=== PATIENT | male | born 1950 | race Two or more races ===

== ENCOUNTER 2022-08-30 14:45 | Emergency (ER) | payer OTHER, MEDICAID ==
[~2022-08-30] VITALS: Ht 170.2 cm; Wt 87.3 kg
[2022-08-30 15:46] LABS: Basophils # (auto) 0.1 10 ^3/uL (0-0.2); Basophils % (auto) 0.8 % (0.0-2.0); Eosinophils # (auto) 0.1 10 ^3/uL (0-0.8); Eosinophils % (auto) 1.5 % (0.0-7.0); Hematocrit 43.5 % (41.0-53.0); Hemoglobin 14.5 g/dL (13.5-17.5); Lymphocytes # (auto) 2.2 10 ^3/uL (0.4-5.4); Lymphocytes % (auto) 34.2 % (10.0-50.0); Mean Corpuscular Hemoglobin 29.5 pg (28.0-32.0); Mean Corpuscular Hgb Conc. 33.2 g/dL (32.0-36.0); Mean Corpuscular Volume 88.6 fL (80.0-100.0); Monocytes # (auto) 0.5 10 ^3/uL (0-1.3); Monocytes % (auto) 8.4 % (0.0-12.0); Neutrophils # (auto) 3.5 10 ^3/uL (1.6-8.6); Neutrophils % (auto) 55.1 % (37.0-80.0); Nucleated Red Blood Cells % 0.4 %; Red Blood Cells 4.91 10^6/uL (4.5-5.90); Red Cell Distribution Width 15.6 % (11.8-14.3); White Blood Cell 6.3 10^3/uL (4.4-10.8)
[2022-08-30 16:04] LABS: INR 1.03 (0.9-1.15); Partial Thromboplastin Time 29.1 SEC (24.5-34.5)
[2022-08-30 16:06] LABS: Calcium 8.5 mg/dL (8.5-10.1)
[2022-08-30 16:11] LABS: BUN/Creatinine Ratio 15.3 (10.0-20.0); Bilirubin, Total 0.6 mg/dL (0.2-1.0)
[2022-08-30] MEDS ORDERED: PHENSUP38 PR ×2 (19:51)
[2022-08-30 20:40] VITALS: BP 144/62
== END 2022-08-30 20:46 | disposition home or self-care (01) ==
LOC: ER 14:45
DX: K64.8 Other hemorrhoids (principal); R06.02 Shortness of breath
CPT/HCPCS: 36415; 80053; 83880; 84484; 85025; 85610; 85730; 86850; 86900; 86901; 93005

== ENCOUNTER 2022-09-01 19:30 | Emergency (ER) | payer OTHER, MEDICAID ==
[~2022-09-01] VITALS: Ht 170.2 cm; Wt 86.5 kg
[~2022-09-01 19:30] MED LIST: PHENSUP38 PR
[2022-09-01] MEDS ORDERED: HYDR25SU21 PR ×2 (20:58)
[2022-09-01 21:05] VITALS: BP 132/67
== END 2022-09-01 21:06 | disposition home or self-care (01) ==
LOC: ER 19:30
DX: K64.8 Other hemorrhoids (principal)

== ENCOUNTER 2023-10-18 06:23 | Emergency (ER) | payer OTHER, MEDICAID ==
[~2023-10-18] VITALS: Ht 350.5 cm; Wt 78.0 kg
[2023-10-18] MEDS: SODIUM CHLORIDE 0.9% 1,000 ML IV ONE (07:45)
[2023-10-18 08:28] LABS: Basophils # (auto) 0.1 10 ^3/uL (0-0.2); Basophils % (auto) 0.8 % (0.0-2.0); Eosinophils # (auto) 0.1 10 ^3/uL (0-0.8); Eosinophils % (auto) 1.8 % (0.0-7.0); Hematocrit 43.1 % (41.0-53.0); Hemoglobin 14.4 g/dL (13.5-17.5); Lymphocytes # (auto) 2.2 10 ^3/uL (0.4-5.4); Lymphocytes % (auto) 30.7 % (10.0-50.0); Mean Corpuscular Hemoglobin 29.6 pg (28.0-32.0); Mean Corpuscular Hgb Conc. 33.5 g/dL (32.0-36.0); Mean Corpuscular Volume 88.3 fL (80.0-100.0); Monocytes # (auto) 0.7 10 ^3/uL (0-1.3); Monocytes % (auto) 9.9 % (0.0-12.0); Neutrophils # (auto) 4.1 10 ^3/uL (1.6-8.6); Neutrophils % (auto) 56.8 % (37.0-80.0); Nucleated Red Blood Cells % 0.2 %; Platelet Count (auto) 260 10^3/uL (140-450); Red Blood Cells 4.88 10^6/uL (4.5-5.90); Red Cell Distribution Width 15.3 % (11.8-14.3); White Blood Cell 7.2 10^3/uL (4.4-10.8)
[2023-10-18 08:51] VITALS: TEMP 98
[2023-10-18 08:55] LABS: Alanine Aminotransferase 18 U/L (7-40); Albumin 4.4 g/dL (3.2-4.8); Alkaline Phosphatase 99 U/L (46-116); Anion Gap 0 (5-15); Aspartate Aminotransferase 16 U/L (13-40); BUN/Creatinine Ratio 14.1 (10.0-20.0); Blood Urea Nitrogen 13 mg/dL (9-23); Calcium 9.7 mg/dL (8.7-10.4); Carbon Dioxide 33 mmol/L (20-30); Chloride 106 mmol/L (98-107); Glucose 103 mg/dL (74-106); Magnesium 2.2 mg/dL (1.6-2.6); Potassium 3.9 mmol/L (3.5-5.1); Sodium 139 mmol/L (136-145)
[2023-10-18 08:56] LABS: Bilirubin, Total 1.4 mg/dL (0.2-1.0)
[2023-10-18 09:18] VITALS: RESP 18; O2SAT 95
[2023-10-18] MEDS: IOHEXOL 350 MG/ML 100ML IJ ONE (09:23)
[2023-10-18] MEDS: IOHEXOL 300 MG/ML 100ML BOTTLE IJ ONE (09:24)
[2023-10-18 10:05] LABS: Urine Bacteria None Seen /hpf (None Seen)
[2023-10-18 10:15] LABS: Urine Blood Negative /uL (Negative); Urine Clarity Clear (Clear); Urine Color Light-Yellow (Yellow); Urine Mucus FEW (None Seen); Urine Protein, UAD Negative (Negative); Urine Specific Gravity 1.017 (1.001-1.035); Urine Urobilinogen Normal (Negative); Urine WBC <1 /hpf (0 - 3); Urine pH 5.5 (5.0-9.0)
[2023-10-18 11:03] VITALS: BP 179/73; PULSE 55; RESP 18; O2SAT 97
[2023-10-18] MEDS ORDERED: HYDR25SU21 PR (12:34)
[2023-10-18] MEDS ORDERED: TAMS-35 PO (12:34)
[2023-10-18] MEDS ORDERED: DICL50TA2 PO (12:34)
== END 2023-10-18 13:06 | disposition home or self-care (01) ==
LOC: ER 06:25
DX: K64.8 Other hemorrhoids (principal); N40.0 Benign prostatic hyperplasia without lower urinary tract symptoms; I10 Essential (primary) hypertension; E11.9 Type 2 diabetes mellitus without complications; E78.5 Hyperlipidemia, unspecified
CPT/HCPCS: 36415; 74177; 80053; 81001; 83735; 85025; 96360; 96361; 99285; Q9967